=== PATIENT | male | born 1960 | race Hispanic/Latino ===

== ENCOUNTER 2023-12-28 20:47 | Emergency (ER) | payer OTHER ==
[~2023-12-28] VITALS: Ht 170.2 cm; Wt 86.6 kg
[2023-12-28 21:35] LABS: APPEARANCE,URINE CLEAR (CLEAR); BILIRUBIN,URINE NEGATIVE (NEGATIVE); COLOR,URINE YELLOW (YELLOW); GLUCOSE, URINE (UA) NEGATIVE (NEGATIVE); KETONES,URINE NEGATIVE (NEGATIVE); LEUKOCYTE ESTERASE ,URINE NEGATIVE Leu/uL (NEGATIVE); NITRATE,URINE NEGATIVE (NEGATIVE); OCCULT BLOOD,URINE NEGATIVE (NEGATIVE); PH,URINE 6.5 (5.0-8.0); PROTEIN,URINE 200 mg/dL (NEGATIVE)
[2023-12-28 21:37] LABS: ADD UA MICROSCOPIC YES
[2023-12-28 21:40] LABS: MUCUS,URINE RARE LPF (None Seen)
[2023-12-28 21:44] LABS: BASOPHILS # (AUTO) 0.06 K/uL (0.00-0.20); BASOPHILS % (AUTO) 0.8 % (0.0-5.0); EOSINOPHILS # (AUTO) 0.15 K/uL (0.00-0.70); HEMATOCRIT 48.5 % (42-54); IMMATURE GRANULOCYTE ABSOLUTE 0.03 K/uL (0-1); LYMPHOCYTES # (AUTO) 2.4 K/uL (1.0-4.8); LYMPHOCYTES % (AUTO) 31.2 % (21.0-51.0); MEAN CORPUSCULAR VOLUME 82.3 fL (79-99); MONOCYTES # (AUTO) 0.8 K/uL (0.1-1.0); MONOCYTES % (AUTO) 9.9 % (3.0-13.0); NEUTROPHILS # (AUTO) 4.3 K/uL (1.8-7.7); NEUTROPHILS % (AUTO) 55.7 % (40.0-77.0); PLATELET COUNT (AUTO) 286 K/uL (130-400); RED BLOOD CELL COUNT(AUTO) 5.89 MIL/uL (4.50-6.20); WHITE BLOOD COUNT (AUTO) 7.7 K/uL (4.8-10.8)
[2023-12-28 21:54] LABS: CREATININE 1.1 mg/dL (0.5-1.3); POTASSIUM 3.8 mmol/L (3.5-5.1)
[2023-12-28 22:00] LABS: AMPHET/METH SCREEN,URINE NEGATIVE (NEGATIVE); BARBITURATE SCREEN, URINE NEGATIVE (NEGATIVE); BENZODIAZEPINES SCREEN,URINE NEGATIVE (NEGATIVE); CANNABINOID SCREEN,URINE NEGATIVE (NEGATIVE); COCAINE SCREEN,URINE NEGATIVE (NEGATIVE); OPIATE SCREEN,URINE NEGATIVE (NEGATIVE); PHENCYCLIDINE SCREEN,URINE NEGATIVE (NEGATIVE)
[2023-12-28] MEDS: 0.9%NACL 1000ML 1,000 ML IV ONE (22:00)
[2023-12-28] MEDS: HYDRALAZINE 20MG/ML VIAL IV ONE (22:01)
[2023-12-28] MEDS: ACETAMINOPHEN 500 MG TABLET PO ONE (22:02)
[2023-12-28 22:03] LABS: ALBUMIN 3.4 g/dL (3.5-5.0); BILIRUBIN,TOTAL 0.3 mg/dL (0.2-1.0)
[2023-12-28] MEDS: ORPHENADRINE 60MG/2ML IM ONE (22:10)
[2023-12-28] MEDS: ONDANSETRON 4MG INJ IVP ONE (22:13)
[2023-12-28] MEDS: PANTOPRAZOLE 40 MG/VIAL IVP ONE (22:13)
[2023-12-28] MEDS: KETOROLAC 30MG VIAL (30MG/ML) IVP ONE (22:37)
[2023-12-28] MEDS: LIDOCAINE 4% ADH..PATCH TP ONE (23:18)
[2023-12-28] MEDS ORDERED: CYCL10TA16 PO (23:47)
[2023-12-28] MEDS ORDERED: LIDO1ADH71 TP (23:47)
[2023-12-29 00:41] VITALS: BP 162/104; PULSE 80; RESP 18; O2SAT 98
== END 2023-12-29 00:42 | disposition home or self-care (01) ==
LOC: EDH 20:47
DX: M54.50 Low back pain, unspecified (principal); R10.9 Unspecified abdominal pain; I10 Essential (primary) hypertension; Z88.0 Allergy status to penicillin
CPT/HCPCS: 99285; 84484; 80053; 80305; 85025; 81001; 36415; 71045; 74176; 96372; 96374; 96375; 93005; J7030; J0360; J2405; J1885; J2470; J2360

== ENCOUNTER 2023-12-30 04:31 | Emergency (ER) | payer OTHER ==
[~2023-12-30] VITALS: Ht 170.2 cm; Wt 87.1 kg
[~2023-12-30 04:31] MED LIST: CYCL10TA16 PO; LIDO1ADH71 TP
[2023-12-30 04:46] VITALS: BP 178/98; PULSE 65; RESP 18; O2SAT 98
[2023-12-30] MEDS: ORPHENADRINE 60MG/2ML IM ONE (04:52)
[2023-12-30] MEDS: KETOROLAC 30MG VIAL (30MG/ML) IM ONE (04:53)
== END 2023-12-30 05:18 | disposition home or self-care (01) ==
LOC: EDH 04:31
DX: M54.50 Low back pain, unspecified (principal); I10 Essential (primary) hypertension; Z79.899 Other long term (current) drug therapy; Z88.0 Allergy status to penicillin
CPT/HCPCS: 99284; 96372 ×2; 93005; J1885; J2360